=== PATIENT | female | born 1985 | race Caucasian/White ===

== ENCOUNTER 2016-06-08 13:49 | Emergency (ER) | payer SELFPAY ==
[~2016-06-08] VITALS: Ht 172.7 cm; Wt 77.1 kg
[2016-06-08] MEDS ORDERED: IV NORMAL SALINE 1000ML BAG 1,000 ML IV SCH (14:10)
[2016-06-08] MEDS ORDERED: 0.9 % SODIUM CHLORIDE 10 ML DISP.SYRIN. IV PRN (14:15)
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
[2016-06-08 14:30] LABS: BILIRUBIN,URINE NEGATIVE (NEG); GLUCOSE,URINE NEGATIVE (NEG); NITRITE,URINE NEGATIVE (NEG); PROTEIN,URINE NEGATIVE (NEG-TRACE); UROBILINOGEN,URINE 0.2 mg/dL (0.2 mg/dL)
[2016-06-08] MEDS ORDERED: ONDANSETRON PF 4 MG/2 ML VIAL. IV ONE (14:30)
[2016-06-08] MEDS ORDERED: ACETAMINOPHEN 325 MG TABLET. PO ONE (14:30)
[2016-06-08 14:35] LABS: BASO % 0 % (0-3); EOS % 1 % (0-3); HEMATOCRIT 41.6 % (36.0-47.0); LYMPH # 2.7 x10^3/uL (1.0-4.8); LYMPH % 34 % (24-48); MEAN CORPUSCULAR HEMOGLOBIN 30 pg (25-35); MEAN CORPUSCULAR HGB CONC 34 g/dL (31-37); MEAN CORPUSCULAR VOLUME 88 fL (79-100); MONO % 8 % (0-9); NEUT % 57 % (31-73); PLATELET COUNT 292 x10^3/uL (140-400); RED BLOOD COUNT 4.71 x10^6/uL (3.50-5.40); RED CELL DISTRIBUTION WIDTH 14.1 % (11.5-14.5); WHITE BLOOD COUNT 7.8 x10^3/uL (4.0-11.0)
[2016-06-08 14:37] LABS: BACTERIA,URINE MODERATE /HPF (0-FEW); RBC,URINE 0 /HPF (0-2); SQUAMOUS EPITHELIAL CELL,UR MANY /LPF; WBC,URINE OCC /HPF (0-4)
[2016-06-08 14:50] LABS: CALCIUM 9.2 mg/dL (8.5-10.1); CREATININE 0.7 mg/dL (0.6-1.0); GFR 99.6; POTASSIUM 3.4 mmol/L (3.5-5.1)
[2016-06-08 14:56] LABS: ALBUMIN 3.9 g/dL (3.4-5.0); ALBUMIN/GLOBULIN RATIO 0.9 (1.0-1.7); TOTAL BILIRUBIN 0.4 mg/dL (0.2-1.0); TOTAL PROTEIN 8.4 g/dL (6.4-8.2)
[2016-06-08] MEDS ORDERED: ONDA4TAB10 SL (15:35)
--- NOTE | 2016-06-08 16:00 | RAD ---
Obstetrical ultrasound, 06/08/2016: History: , abdominal pain Transabdominal and transvaginal scans were obtained. The uterus measures 8 x 5 x 6 cm. The myometrial echo pattern is somewhat heterogeneous. There is mild heterogeneous thickening of the central uterine echo complex which measures 11 mm in AP dimension. No intrauterine gestational sac is seen. The ovaries are of normal size. They contain small follicular cysts. Blood flow is present in both ovaries. No adnexal mass is seen. There is no evidence of free fluid in the pelvis. IMPRESSION: 1. Minimal thickening of the central uterine echo complex without evidence of an intrauterine gestational sac. 2. No adnexal abnormality is detected. 3. Given the patient's positive test the findings may reflect a very early intrauterine or an occult ectopic . Correlation with serial hCG titers and possibly sonographic follow-up is suggested.
[2016-06-08 16:09] VITALS: BP 111/62
== END 2016-06-08 16:36 | disposition home or self-care (01) ==
LOC: ER 13:49
DX: O20.0 Threatened abortion (principal); Z3A.01 Less than 8 weeks gestation of pregnancy; F31.9 Bipolar disorder, unspecified; F41.9 Anxiety disorder, unspecified; M30.3 Mucocutaneous lymph node syndrome [Kawasaki]; F15.10 Other stimulant abuse, uncomplicated; F17.210 Nicotine dependence, cigarettes, uncomplicated; Z88.1 Allergy status to other antibiotic agents; Z88.5 Allergy status to narcotic agent
CPT/HCPCS: 36415; 76801; 80053; 81001; 81025; 84702; 85027; 86900; 86901; 87086; 87491; 87591; 96361; 96374; 99285; J2405; J7030; Q0111

== ENCOUNTER 2016-11-07 16:26 | Inpatient (IN) | payer OTHER ==
[~2016-11-07] VITALS: Ht 172.7 cm; Wt 104.4 kg
[~2016-11-07 16:26] MED LIST: ONDA4TAB10 SL
[2016-11-07] MEDS ORDERED: fentaNYL PF VIAL 100 MCG/2 ML VIAL IV ONE (16:45)
[2016-11-07] MEDS ORDERED: ONDANSETRON PF 4 MG/2 ML VIAL. IV ONE (16:45)
[2016-11-07] MEDS ORDERED: diphenhydrAMINE 50 MG/ML VIAL IVP ONE (16:45)
[2016-11-07 17:23] LABS: OBC FLU VALID
[2016-11-07 17:33] LABS: BASO # 0.1 x10^3/uL (0.0-0.2); BASO % 0 % (0-3); EOS % 0 % (0-3); HEMATOCRIT 36.2 % (36.0-47.0); HEMOGLOBIN 12.5 g/dL (12.0-15.5); LYMPH # 2.8 x10^3/uL (1.0-4.8); LYMPH % 16 % (24-48); MEAN CORPUSCULAR HEMOGLOBIN 31 pg (25-35); MEAN CORPUSCULAR HGB CONC 35 g/dL (31-37); MEAN CORPUSCULAR VOLUME 90 fL (79-100); MONO % 7 % (0-9); NEUT % 77 % (31-73); PLATELET COUNT 300 x10^3/uL (140-400); RED BLOOD COUNT 4.03 x10^6/uL (3.50-5.40); RED CELL DISTRIBUTION WIDTH 13.4 % (11.5-14.5); WHITE BLOOD COUNT 17.9 x10^3/uL (4.0-11.0)
[2016-11-07] MEDS ORDERED: IV NORMAL SALINE 1000ML BAG 1,000 ML IV ONE (17:45)
[2016-11-07 17:49] LABS: CALCIUM 8.9 mg/dL (8.5-10.1); CREATININE 0.6 mg/dL (0.6-1.0); POTASSIUM 3.5 mmol/L (3.5-5.1)
[2016-11-07 17:55] LABS: ALBUMIN 2.8 g/dL (3.4-5.0); ALBUMIN/GLOBULIN RATIO 0.6 (1.0-1.7); C-REACTIVE PROTEIN 6.1 mg/L (0-3.3); TOTAL BILIRUBIN 0.2 mg/dL (0.2-1.0); TOTAL PROTEIN 7.4 g/dL (6.4-8.2)
[2016-11-07] MEDS ORDERED: PROCHLORPERAZINE 10 MG/2 ML VIAL. IV ONE (18:00)
[2016-11-07] MEDS ORDERED: METOCLOPRAMIDE HCL 10 MG/2 ML VIAL. IV ONE (18:00)
[2016-11-07] MEDS ORDERED: LIDOCAINE 2% 20 ML VIAL. ONE (18:51)
[2016-11-07] MEDS ORDERED: LIDOCAINE 2% 20 ML VIAL. SQ ONE (19:15)
[2016-11-07 19:24] LABS: CSF PROTEIN 87.8 mg/dL (15.0-45.0)
[2016-11-07 19:43] LABS: CSF CLARITY CLEAR; CSF COLOR COLORLESS
[2016-11-07] MEDS ORDERED: LIDOCAINE 2% JELLY 6ML IN APPLICATOR. MM ONE (20:00)
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
[2016-11-07 20:10] LABS: CSF PMN % 3 %
[2016-11-07] MEDS ORDERED: VANCOMYCIN 1.5 GM in IV NORMAL SALINE 500ML BAG 500 ML IV ONE (20:15)
[2016-11-07] MEDS ORDERED: DEXAMETHASONE SOD PHOS 20 MG/5 ML VIAL. IV ONE (20:15)
[2016-11-07] MEDS ORDERED: ONDANSETRON PF 4 MG/2 ML VIAL. IV PRN (20:30)
[2016-11-07] MEDS ORDERED: VANCOMYCIN 2 GM in IV NORMAL SALINE 500ML BAG 500 ML IV ONE (20:30)
[2016-11-07 20:40] LABS: NEGATIVE OBC MONO NEG; POSITIVE OBC MONO POS
[2016-11-07 20:43] LABS: % EOS 2 % (0-5); PLT ESTIMATE ADEQUATE (ADEQUATE)
[2016-11-07] MEDS: IV NORMAL SALINE 1000ML BAG 1,000 ML IV SCH (20:47)
[2016-11-07] MEDS: MORPHINE SULFATE 2 MG/ML DISP.SYRIN. IV PRN ×2 (20:54→23:34)
[2016-11-07] MEDS: DEXTROSE 5% IV SCH (21:26)
[2016-11-07] MEDS: ACYCLOVIR SODIUM IV SCH (21:26)
[2016-11-07] MEDS ORDERED: DEXTROSE 5% IV SCH (22:00)
[2016-11-07] MEDS ORDERED: ACYCLOVIR SODIUM IV SCH (22:00)
[2016-11-07 23:30] VITALS: BP 109/53
[2016-11-08] MEDS: MORPHINE SULFATE 2 MG/ML DISP.SYRIN. IV PRN ×7 (02:27→20:01)
[2016-11-08 03:17] VITALS: BP 87/46
[2016-11-08] MEDS: ACYCLOVIR SODIUM IV SCH (05:53)
[2016-11-08] MEDS: DEXTROSE 5% IV SCH (05:53)
[2016-11-08] MEDS: IV NORMAL SALINE 1000ML BAG 1,000 ML IV SCH ×2 (05:54→12:22)
[2016-11-08 06:03] LABS: BASO % 0 % (0-3); EOS % 0 % (0-3); HEMOGLOBIN 11.4 g/dL (12.0-15.5); LYMPH # 1.3 x10^3/uL (1.0-4.8); LYMPH % 8 % (24-48); MEAN CORPUSCULAR HEMOGLOBIN 31 pg (25-35); MEAN CORPUSCULAR HGB CONC 35 g/dL (31-37); MEAN CORPUSCULAR VOLUME 89 fL (79-100); MONO % 1 % (0-9); NEUT % 91 % (31-73); PLATELET COUNT 277 x10^3/uL (140-400); RED BLOOD COUNT 3.71 x10^6/uL (3.50-5.40); RED CELL DISTRIBUTION WIDTH 13.4 % (11.5-14.5); WHITE BLOOD COUNT 16.9 x10^3/uL (4.0-11.0)
[2016-11-08 06:26] LABS: CALCIUM 8.3 mg/dL (8.5-10.1); CREATININE 0.6 mg/dL (0.6-1.0); POTASSIUM 3.9 mmol/L (3.5-5.1)
[2016-11-08 07:02] VITALS: BP 91/47
--- NOTE | 2016-11-08 07:16 | EKG ---
[facility] [address] [place] [address] Test Date: 2016-11-07 Test Time: 16:38:46 Pat Name: KLAUDIA SAHU Department: Room: [facility] Gender: F [employer]: : 1985 Requested By: SKIP STEINBERG Order Number: [id number] Reading MD: Giovanni Abbasi Measurements Intervals Unity Rate: 127 P: 51 CO: 112 QRS: 77 QRSD: 82 T: 31 QT: 286 QTc: 421 Interpretive Statements SINUS TACHYCARDIA Electronically Signed On 11-30-2016 15:56:05 CDT by Giovanni Abbasi
[2016-11-08] MEDS ORDERED: PNEUMOC CONJ VACC 23-VALENT 0.5 ML VIAL. VAX IM ONE (09:00)
[2016-11-08] MEDS ORDERED: PNEUMOCOCCAL VAX SCREEN BY RX. MC ONE (09:00)
--- NOTE | 2016-11-08 09:02 | RAD ---
Portable chest, 11/07/2016: History: Chest pain, fever, cough The heart size and pulmonary vascularity are normal. No pulmonary infiltrates are seen. There is no evidence of pleural fluid. IMPRESSION: No acute cardiopulmonary abnormality is detected.
--- NOTE | 2016-11-08 09:27 | PDOC ---
Infectious Disease Note ROS ROS GEN: Denies fevers, chills, sweats HEENT: Denies blurred vision, sore throat CV: Denies chest pain RESP: Denies shortness of air, cough GI: Denies n/v/d NEURO: Denies confusion, dizziness MSK: Denies weakness, joint pain/swelling Vital Sign Vital Signs Vital Signs Date Time Temp Pulse Resp B/P (MAP) Pulse Ox O2 Delivery O2 Flow Rate FiO2 11/08/16 08:16 99 Room Air 11/08/16 07:02 97.6 107 20 91/47 (62) 97.6 Physical Exam PHYSICAL EXAM GENERAL: NAD, Alert HEENT: PERRL, OC/OP NECK: Supple, no JVD, no LN LUNGS: Clear HEART: S1S2, no gallop, no murmur ABD: Soft, NT, no organomegaly, no rebound EXT: No edema, no cyanosis [employer]TER: Alert, oriented x 3, no focal neurologic deficit SKIN: No rash IV: ok Labs Lab Laboratory Tests Test 11/07/16 16:45 11/07/16 17:25 11/07/16 18:57 11/08/16 05:40 Influenza Type A Antigen Negative (NEGATIVE) Influenza Type B Antigen Negative (NEGATIVE) White Blood Count 17.9 x10^3/uL (4.0-11.0) 16.9 x10^3/uL (4.0-11.0) Red Blood Count 4.03 x10^6/uL (3.50-5.40) 3.71 x10^6/uL (3.50-5.40) Hemoglobin 12.5 g/dL (12.0-15.5) 11.4 g/dL (12.0-15.5) Hematocrit 36.2 % (36.0-47.0) 33.0 % (36.0-47.0) Mean Corpuscular Volume 90 fL (79-100) 89 fL (79-100) Mean Corpuscular Hemoglobin 31 pg (25-35) 31 pg (25-35) Mean Corpuscular Hemoglobin Concent 35 g/dL (31-37) 35 g/dL (31-37) Red Cell Distribution Width 13.4 % (11.5-14.5) 13.4 % (11.5-14.5) Platelet Count 300 x10^3/uL (140-400) 277 x10^3/uL (140-400) Neutrophils (%) (Auto) 77 % (31-73) 91 % (31-73) Lymphocytes (%) (Auto) 16 % (24-48) 8 % (24-48) Monocytes (%) (Auto) 7 % (0-9) 1 % (0-9) Eosinophils (%) (Auto) 0 % (0-3) 0 % (0-3) Basophils (%) (Auto) 0 % (0-3) 0 % (0-3) Neutrophils # (Auto) 13.8 x10^3uL (1.8-7.7) 15.3 x10^3uL (1.8-7.7) Lymphocytes # (Auto) 2.8 x10^3/uL (1.0-4.8) 1.3 x10^3/uL (1.0-4.8) Monocytes # (Auto) 1.2 x10^3/uL (0.0-1.1) 0.2 x10^3/uL (0.0-1.1) Eosinophils # (Auto) 0.1 x10^3/uL (0.0-0.7) 0.0 x10^3/uL (0.0-0.7) Basophils # (Auto) 0.1 x10^3/uL (0.0-0.2) 0.0 x10^3/uL (0.0-0.2) Segmented Neutrophils % 71 % (35-66) Band Neutrophils % 3 % (0-9) Lymphocytes % 18 % (24-48) Monocytes % 6 % (0-10) Eosinophils % 2 % (0-5) Platelet Estimate Adequate (ADEQUATE) Sodium Level 135 mmol/L (136-145) 135 mmol/L (136-145) Potassium Level 3.5 mmol/L (3.5-5.1) 3.9 mmol/L (3.5-5.1) Chloride Level 101 mmol/L (98-107) 104 mmol/L (98-107) Carbon Dioxide Level 23 mmol/L (21-32) 18 mmol/L (21-32) Anion Gap 11 (6-14) 13 (6-14) Blood Urea Nitrogen 6 mg/dL (7-20) 6 mg/dL (7-20) Creatinine 0.6 mg/dL (0.6-1.0) 0.6 mg/dL (0.6-1.0) Estimated GFR (Cockcroft-Gault) 119.0 119.0 BUN/Creatinine Ratio 10 (6-20) Glucose Level 91 mg/dL (70-99) 147 mg/dL (70-99) Calcium Level 8.9 mg/dL (8.5-10.1) 8.3 mg/dL (8.5-10.1) Total Bilirubin 0.2 mg/dL (0.2-1.0) Aspartate Amino Transf (AST/SGOT) 11 U/L (15-37) Alanine Aminotransferase (ALT/SGPT) 18 U/L (14-59) Alkaline Phosphatase 63 U/L (46-116) C-Reactive Protein, Quantitative 6.1 mg/L (0-3.3) Total Protein 7.4 g/dL (6.4-8.2) Albumin 2.8 g/dL (3.4-5.0) Albumin/Globulin Ratio 0.6 (1.0-1.7) Heterophil Agglutinins Negative (NEGATIVE) CSF Tube Number 4 CSF Color Colorless CSF Clarity Clear CSF WBC 110 CSF RBC 0 CSF Mononuclear WBCs % 97 % CSF Polynuclear WBCs (%) 3 % CSF Glucose 51 mg/dL (37-70) CSF Total Protein 87.8 mg/dL (15.0-45.0) Objective Assessment Aseptic meningitis leukocytosis - reactive plus steroid 24 weeks Emycin allergy - ? reaction but has tolerated Azithromycin Plan Plan of Care D/c Acyclovir Cont Rocephin for now F/u labs and cults Hope for d/c home in Thank you # [phone] ROSALEE BRADEN MD Nov 08, 2016 09:27
--- NOTE | 2016-11-08 11:14 | CONS ---
DATE OF CONSULTATION: 11/08/2016 ROOM: 656. REQUESTING PHYSICIAN: Dr. Matos. REASON FOR CONSULTATION: Meningitis and . HISTORY OF PRESENT ILLNESS: The patient is a pleasant 30-year-old female, with her fifth child and is 24 weeks' . She states on Monday, she was in her normal state of health, but over the course of the day, developed a headache. This again became worse yesterday. She did not have any change in vision. Denies any bug bites or tick bites. Denies any ill contacts. Her youngest child is 10 months old. She had low grade sweats and a little sinus congestion has developed overnight with a little cough that was nonproductive. No nausea, vomiting, diarrhea, dysuria, frequency, urgency. Denies any unusual or abnormal vaginal discharge, no ulcerations or pain in the area. She presented to [facility] after talking to the BUSINESS OFFICE COORDINATOR. Her white blood cell count was 17.9. She was afebrile. She subsequently has undergone a lumbar puncture. She was found to have 110 white cells with 97% WBCs, total protein was 87.8, glucose was 51. She was admitted to the hospital. She was given a dose of dexamethasone and Rocephin, a dose of vancomycin and placed on IV acyclovir. Currently, the patient is feeling much better. She is actually asking if she can go home. She denies any fevers or chills, sweats, headache has improved. She has no change in vision. No problem swallowing or hearing problems. Again, she is a little congested this morning. No gross sore throat or dry cough. No nausea, vomiting, or diarrhea. No dysuria, frequency, or urgency. No rashes, no joint aches, no muscle aches. PAST MEDICAL HISTORY: Positive for anxiety, bipolar disorder, depression, history of PID, history of Kawasaki disease. Also states she has a history of Trichomonas in the distant past. REVIEW OF SYSTEMS: Otherwise negative except for mentioned above. ALLERGIES: Listed as ERYTHROMYCIN, she is uncertain what happens when she takes this, though she has taken azithromycin without complications. SOCIAL HISTORY: She has a history of smoking. Does have a history of drug use in the past. FAMILY HISTORY: Noncontributory. CURRENT MEDICATIONS: Again, she received a dose of dexamethasone. She received a dose of vancomycin. She was placed on IV acyclovir and placed on Rocephin q. 12, Benadryl, Reglan. Other meds are available, have been reviewed in the chart. PHYSICAL EXAMINATION: VITAL SIGNS: She has been afebrile, temperature is 97.6, pulse 107, respirations 20, blood pressure 91/47, satting 99% on room air. CONSTITUTIONAL: She is cooperative. She is in no acute distress. She looks well, but she does sound just a trace congested. HEENT: Pupils are equal and reactive. She has normal conjunctivae. Extraocular muscles were intact. She had no pain with eye movement. Oral cavity: Pharynx was clear. NECK: Supple with full range of motion, no complications. LUNGS: Clear to auscultation bilaterally. HEART: S1, S2. ABDOMEN: Appropriately distended with positive bowel sounds, no guarding or rebound. EXTREMITIES: No clubbing or cyanosis. No gross edema. SKIN: Without signs of rash. Joints are not inflamed. NEUROLOGIC: She is nonfocal and appropriate. PSYCHIATRIC: Affect is appropriate. LABORATORY DATA: White count today 69, hemoglobin 11.4, platelets of 277 with 91% neutrophils, glucose of 147 this morning. AST was 11, ALT was 18, alkaline phosphatase 63. CRP 6.1. CSF described in the history of present illness. Influenza screen was negative. [place] screen was negative. Chest x-ray has not been officially interpreted, but there was no acute pulmonary disease in ED report IMPRESSION: 1. Aseptic meningitis. She is not starting any new medications recently in addition to denied any bug bites, tick bites or ill contacts. 2. Leukocytosis, reactive, plus steroids. 3. 24 weeks' . 4. ERYTHROMYCIN allergy, questionable reaction as she has tolerated azithromycin in the past. RECOMMENDATIONS: Discontinue the acyclovir. We will continue the Rocephin for now. Follow up on labs and cultures. Hope that she will be able to be discharged to home in the morning. Thank you for allowing me to participate in the patient's care. If you have any questions, please do not hesitate to contact me. ROSALEE BRADEN MD DR: BRYANT/laura JOB#: [id number] / [id number]
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
[2016-11-08 11:31] VITALS: BP 106/67
[2016-11-08] MEDS ORDERED: CALCIUM CARBONATE 500 MG TAB.CHEW PO PRN (13:30)
[2016-11-08 15:18] VITALS: BP 104/64
[2016-11-08 19:51] VITALS: BP 132/81
[2016-11-08 23:20] VITALS: BP 102/58
[2016-11-09 03:35] VITALS: BP 97/60
[2016-11-09] MEDS ORDERED: ACETAMINOPHEN 325 MG TABLET. PO PRN (04:15)
[2016-11-09] MEDS: MORPHINE SULFATE 4 MG/ML DISP.SYRIN. IV PRN ×2 (04:26→07:17)
[2016-11-09 04:34] LABS: BASO % 0 % (0-3); EOS % 1 % (0-3); HEMATOCRIT 30.8 % (36.0-47.0); HEMOGLOBIN 10.5 g/dL (12.0-15.5); LYMPH # 2.9 x10^3/uL (1.0-4.8); LYMPH % 26 % (24-48); MEAN CORPUSCULAR HEMOGLOBIN 31 pg (25-35); MEAN CORPUSCULAR HGB CONC 34 g/dL (31-37); MEAN CORPUSCULAR VOLUME 90 fL (79-100); MONO % 9 % (0-9); NEUT % 64 % (31-73); PLATELET COUNT 235 x10^3/uL (140-400); RED BLOOD COUNT 3.43 x10^6/uL (3.50-5.40); RED CELL DISTRIBUTION WIDTH 13.4 % (11.5-14.5)
[2016-11-09 05:01] LABS: CALCIUM 8.1 mg/dL (8.5-10.1); CREATININE 0.5 mg/dL (0.6-1.0); GFR 146.9; POTASSIUM 3.5 mmol/L (3.5-5.1)
[2016-11-09 07:21] VITALS: BP 108/72
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
--- NOTE | 2016-11-09 11:07 | PDOC ---
PROGRESS NOTES Chief Complaint Chief Complaint Headache meningitis PMH: anxiety bipolar depression PID Kawasaki's disease History of Present Illness History of Present Illness Pt was sitting at the side of the bed. RN was in the room. No new complaints and NAD. She states that she needed to go home and was subsequently discharged. ID - D/C acyclovir and cont. Rocephin -D/C home today Vitals Vitals Vital Signs Date Time Temp Pulse Resp B/P (MAP) Pulse Ox O2 Delivery O2 Flow Rate FiO2 11/09/16 07:21 97.6 97 20 108/72 (84) 100 Room Air 97.6 Physical Exam General: Alert, Oriented X3, Cooperative, No acute distress Heart: Regular rate, Normal S1, Normal S2 Lungs: Clear Abdomen: Normal bowel sounds, No tenderness Extremities: No clubbing, No cyanosis Skin: No rashes, No breakdown Labs LABS Laboratory Tests Test 11/09/16 03:20 White Blood Count 11.0 x10^3/uL (4.0-11.0) Red Blood Count 3.43 x10^6/uL (3.50-5.40) Hemoglobin 10.5 g/dL (12.0-15.5) Hematocrit 30.8 % (36.0-47.0) Mean Corpuscular Volume 90 fL (79-100) Mean Corpuscular Hemoglobin 31 pg (25-35) Mean Corpuscular Hemoglobin Concent 34 g/dL (31-37) Red Cell Distribution Width 13.4 % (11.5-14.5) Platelet Count 235 x10^3/uL (140-400) Neutrophils (%) (Auto) 64 % (31-73) Lymphocytes (%) (Auto) 26 % (24-48) Monocytes (%) (Auto) 9 % (0-9) Eosinophils (%) (Auto) 1 % (0-3) Basophils (%) (Auto) 0 % (0-3) Neutrophils # (Auto) 7.1 x10^3uL (1.8-7.7) Lymphocytes # (Auto) 2.9 x10^3/uL (1.0-4.8) Monocytes # (Auto) 0.9 x10^3/uL (0.0-1.1) Eosinophils # (Auto) 0.1 x10^3/uL (0.0-0.7) Basophils # (Auto) 0.0 x10^3/uL (0.0-0.2) Sodium Level 137 mmol/L (136-145) Potassium Level 3.5 mmol/L (3.5-5.1) Chloride Level 107 mmol/L (98-107) Carbon Dioxide Level 20 mmol/L (21-32) Anion Gap 10 (6-14) Blood Urea Nitrogen 7 mg/dL (7-20) Creatinine 0.5 mg/dL (0.6-1.0) Estimated GFR (Cockcroft-Gault) 146.9 Glucose Level 101 mg/dL (70-99) Calcium Level 8.1 mg/dL (8.5-10.1) Review of Systems Review of Systems Pt fatigued Pt complains of hunger Pt complains of mild headache Assessment and Plan Assessmemt and Plan Problems Medical Problems: (1) Chest pain Status: Acute (2) Headache Status: Acute (3) Myalgia Status: Acute Headache meningitis PMH: anxiety bipolar depression PID Kawasaki's disease Plan: Home meds Appreciate subspecialist input D/C today Follow-up if symptoms persist Notify specialist of D/C Problems: Comment Review of Relevant I have reviewed the following items randolph (where applicable) has been applied. Labs Laboratory Tests Test 11/07/16 16:45 11/07/16 17:25 11/07/16 18:57 11/08/16 05:40 Influenza Type A Antigen Negative (NEGATIVE) Influenza Type B Antigen Negative (NEGATIVE) White Blood Count 17.9 x10^3/uL (4.0-11.0) 16.9 x10^3/uL (4.0-11.0) Red Blood Count 4.03 x10^6/uL (3.50-5.40) 3.71 x10^6/uL (3.50-5.40) Hemoglobin 12.5 g/dL (12.0-15.5) 11.4 g/dL (12.0-15.5) Hematocrit 36.2 % (36.0-47.0) 33.0 % (36.0-47.0) Mean Corpuscular Volume 90 fL (79-100) 89 fL (79-100) Mean Corpuscular Hemoglobin 31 pg (25-35) 31 pg (25-35) Mean Corpuscular Hemoglobin Concent 35 g/dL (31-37) 35 g/dL (31-37) Red Cell Distribution Width 13.4 % (11.5-14.5) 13.4 % (11.5-14.5) Platelet Count 300 x10^3/uL (140-400) 277 x10^3/uL (140-400) Neutrophils (%) (Auto) 77 % (31-73) 91 % (31-73) Lymphocytes (%) (Auto) 16 % (24-48) 8 % (24-48) Monocytes (%) (Auto) 7 % (0-9) 1 % (0-9) Eosinophils (%) (Auto) 0 % (0-3) 0 % (0-3) Basophils (%) (Auto) 0 % (0-3) 0 % (0-3) Neutrophils # (Auto) 13.8 x10^3uL (1.8-7.7) 15.3 x10^3uL (1.8-7.7) Lymphocytes # (Auto) 2.8 x10^3/uL (1.0-4.8) 1.3 x10^3/uL (1.0-4.8) Monocytes # (Auto) 1.2 x10^3/uL (0.0-1.1) 0.2 x10^3/uL (0.0-1.1) Eosinophils # (Auto) 0.1 x10^3/uL (0.0-0.7) 0.0 x10^3/uL (0.0-0.7) Basophils # (Auto) 0.1 x10^3/uL (0.0-0.2) 0.0 x10^3/uL (0.0-0.2) Segmented Neutrophils % 71 % (35-66) Band Neutrophils % 3 % (0-9) Lymphocytes % 18 % (24-48) Monocytes % 6 % (0-10) Eosinophils % 2 % (0-5) Platelet Estimate Adequate (ADEQUATE) Sodium Level 135 mmol/L (136-145) 135 mmol/L (136-145) Potassium Level 3.5 mmol/L (3.5-5.1) 3.9 mmol/L (3.5-5.1) Chloride Level 101 mmol/L (98-107) 104 mmol/L (98-107) Carbon Dioxide Level 23 mmol/L (21-32) 18 mmol/L (21-32) Anion Gap 11 (6-14) 13 (6-14) Blood Urea Nitrogen 6 mg/dL (7-20) 6 mg/dL (7-20) Creatinine 0.6 mg/dL (0.6-1.0) 0.6 mg/dL (0.6-1.0) Estimated GFR (Cockcroft-Gault) 119.0 119.0 BUN/Creatinine Ratio 10 (6-20) Glucose Level 91 mg/dL (70-99) 147 mg/dL (70-99) Calcium Level 8.9 mg/dL (8.5-10.1) 8.3 mg/dL (8.5-10.1) Total Bilirubin 0.2 mg/dL (0.2-1.0) Aspartate Amino Transf (AST/SGOT) 11 U/L (15-37) Alanine Aminotransferase (ALT/SGPT) 18 U/L (14-59) Alkaline Phosphatase 63 U/L (46-116) C-Reactive Protein, Quantitative 6.1 mg/L (0-3.3) Total Protein 7.4 g/dL (6.4-8.2) Albumin 2.8 g/dL (3.4-5.0) Albumin/Globulin Ratio 0.6 (1.0-1.7) Heterophil Agglutinins Negative (NEGATIVE) CSF Tube Number 4 CSF Color Colorless CSF Clarity Clear CSF WBC 110 CSF RBC 0 CSF Mononuclear WBCs % 97 % CSF Polynuclear WBCs (%) 3 % CSF Glucose 51 mg/dL (37-70) CSF Total Protein 87.8 mg/dL (15.0-45.0) Test 11/09/16 03:20 White Blood Count 11.0 x10^3/uL (4.0-11.0) Red Blood Count 3.43 x10^6/uL (3.50-5.40) Hemoglobin 10.5 g/dL (12.0-15.5) Hematocrit 30.8 % (36.0-47.0) Mean Corpuscular Volume 90 fL (79-100) Mean Corpuscular Hemoglobin 31 pg (25-35) Mean Corpuscular Hemoglobin Concent 34 g/dL (31-37) Red Cell Distribution Width 13.4 % (11.5-14.5) Platelet Count 235 x10^3/uL (140-400) Neutrophils (%) (Auto) 64 % (31-73) Lymphocytes (%) (Auto) 26 % (24-48) Monocytes (%) (Auto) 9 % (0-9) Eosinophils (%) (Auto) 1 % (0-3) Basophils (%) (Auto) 0 % (0-3) Neutrophils # (Auto) 7.1 x10^3uL (1.8-7.7) Lymphocytes # (Auto) 2.9 x10^3/uL (1.0-4.8) Monocytes # (Auto) 0.9 x10^3/uL (0.0-1.1) Eosinophils # (Auto) 0.1 x10^3/uL (0.0-0.7) Basophils # (Auto) 0.0 x10^3/uL (0.0-0.2) Sodium Level 137 mmol/L (136-145) Potassium Level 3.5 mmol/L (3.5-5.1) Chloride Level 107 mmol/L (98-107) Carbon Dioxide Level 20 mmol/L (21-32) Anion Gap 10 (6-14) Blood Urea Nitrogen 7 mg/dL (7-20) Creatinine 0.5 mg/dL (0.6-1.0) Estimated GFR (Cockcroft-Gault) 146.9 Glucose Level 101 mg/dL (70-99) Calcium Level 8.1 mg/dL (8.5-10.1) Laboratory Tests Test 11/09/16 03:20 White Blood Count 11.0 x10^3/uL (4.0-11.0) Red Blood Count 3.43 x10^6/uL (3.50-5.40) Hemoglobin 10.5 g/dL (12.0-15.5) Hematocrit 30.8 % (36.0-47.0) Mean Corpuscular Volume 90 fL (79-100) Mean Corpuscular Hemoglobin 31 pg (25-35) Mean Corpuscular Hemoglobin Concent 34 g/dL (31-37) Red Cell Distribution Width 13.4 % (11.5-14.5) Platelet Count 235 x10^3/uL (140-400) Neutrophils (%) (Auto) 64 % (31-73) Lymphocytes (%) (Auto) 26 % (24-48) Monocytes (%) (Auto) 9 % (0-9) Eosinophils (%) (Auto) 1 % (0-3) Basophils (%) (Auto) 0 % (0-3) Neutrophils # (Auto) 7.1 x10^3uL (1.8-7.7) Lymphocytes # (Auto) 2.9 x10^3/uL (1.0-4.8) Monocytes # (Auto) 0.9 x10^3/uL (0.0-1.1) Eosinophils # (Auto) 0.1 x10^3/uL (0.0-0.7) Basophils # (Auto) 0.0 x10^3/uL (0.0-0.2) Sodium Level 137 mmol/L (136-145) Potassium Level 3.5 mmol/L (3.5-5.1) Chloride Level 107 mmol/L (98-107) Carbon Dioxide Level 20 mmol/L (21-32) Anion Gap 10 (6-14) Blood Urea Nitrogen 7 mg/dL (7-20) Creatinine 0.5 mg/dL (0.6-1.0) Estimated GFR (Cockcroft-Gault) 146.9 Glucose Level 101 mg/dL (70-99) Calcium Level 8.1 mg/dL (8.5-10.1) Microbiology 11/07/16 Anaerobic/Aerobic Culture, Resulted Pending 11/07/16 Anaerobic Culture Result 1 (JONATHAN), Resulted Pending 11/07/16 Aerobic Culture - Preliminary, Resulted 11/07/16 Aerobic Culture Result 1 (JONATHAN) - Preliminary, Resulted Medications Current Medications Fentanyl Citrate (Fentanyl 2ml Vial) 50 mcg 1X ONCE IV Last administered on 17:39; Start 11/07/16 at 16:45; Stop 11/07/16 at 16:46; Status DC Ondansetron HCl (Zofran) 4 mg 1X ONCE IV Last administered on 11/07/16 17:36 ; Start 11/07/16 at 16:45; Stop 11/07/16 at 16:46; Status DC Diphenhydramine HCl (Benadryl) 25 mg 1X ONCE IVP Last administered on 17:38; Start 11/07/16 at 16:45; Stop 11/07/16 at 16:46; Status DC Sodium Chloride 1,000 ml @ 1,000 mls/hr 1X ONCE IV Last administered on 17:43; Start 11/07/16 at 17:45; Stop 11/07/16 at 18:44; Status DC Metoclopramide HCl (Reglan) 10 mg 1X ONCE IV Last administered on 11/07/16 18 :47; Start 11/07/16 at 18:00; Stop 11/07/16 at 18:04; Status DC Prochlorperazine Edisylate (Compazine) 10 mg 1X ONCE IV Last administered on 11/07/16 18:48; Start 11/07/16 at 18:00; Stop 11/07/16 at 18:04; Status DC Lidocaine HCl 20 ml STK-MED ONCE .ROUTE ; Start 11/07/16 at 18:51; Stop at 18:52; Status DC Lidocaine HCl 20 ml 1X ONCE SQ Last administered on 11/07/16 19:17; Start at 19:15; Stop 11/07/16 at 19:16; Status DC Lidocaine HCl (Glydo (Lidocaine) Jelly) 1 ana maria 1X ONCE MM ; Start 11/07/16 at 20 :00; Stop 11/07/16 at 20:01; Status DC Ceftriaxone Sodium 2 gm/ Sodium Chloride 100 ml @ 200 mls/hr Q12HR IV Last administered on 11/08/16 20:04; Start 11/07/16 at 20:27; Stop 11/09/16 at 08:14 ; Status DC Vancomycin HCl 1.5 gm/Sodium Chloride 500 ml @ 250 mls/hr 1X ONCE IV ; Start 11/07/16 at 20:15; Stop 11/07/16 at 22:14; Status UNV Acyclovir Sodium 640 mg/Dextrose 112.8 ml @ 112.8 mls/ hr Q8HRS IV Last administered on 11/08/16 05:53; Start 11/07/16 at 20:39; Stop 11/08/16 at 09:19 ; Status DC Dexamethasone Sodium Phosphate (Decadron) 10 mg 1X ONCE IV Last administered on 11/07/16 20:46; Start 11/07/16 at 20:15; Stop 11/07/16 at 20:26; Status DC Ondansetron HCl (Zofran) 4 mg PRN Q8HRS PRN IV NAUSEA/VOMITING; Start 11/07/16 at 20:30; Stop 11/08/16 at 20:29; Status DC Morphine Sulfate 2 mg PRN Q2HR PRN IV PAIN Last administered on 11/08/16 20:01 ; Start 11/07/16 at 20:30; Stop 11/08/16 at 20:29; Status DC Sodium Chloride 1,000 ml @ 125 mls/hr Q8H IV Last administered on 11/08/16 05 :54; Start 11/07/16 at 20:22; Stop 11/08/16 at 20:21; Status DC Acyclovir Sodium 640 mg/Dextrose 62.8 ml @ 62.8 mls/hr Q8HRS IV ; Start at 22:00; Status UNV Vancomycin HCl 2 gm/Sodium Chloride 500 ml @ 250 mls/hr ONCE ONCE IV Last administered on 11/07/16 23:36; Start 11/07/16 at 20:30; Stop 11/07/16 at 22:29 ; Status DC Pneumococcal Polyvalent Vaccine (Do NOT chart on this placeholder) 0.5 each 1X ONCE MC ; Start 11/08/16 at 09:00; Stop 11/08/16 at 09:01; Status UNV Pneumococcal Polyvalent Vaccine (Pneumovax 23) 0.5 ml ONCE ONCE VAX IM ; Start 11/08/16 at 09:00; Stop 11/08/16 at 09:01; Status DC Calcium Carbonate/ Glycine (Tums) 500 mg PRN QID PRN PO INDIGESTION Last administered on 11/08/16 16:12; Start 11/08/16 at 13:30; Stop 11/09/16 at 10:20 ; Status DC Morphine Sulfate 2 mg PRN Q2HR PRN IV SEVERE PAIN Last administered on 07:17; Start 11/09/16 at 04:30; Stop 11/09/16 at 10:20; Status DC Acetaminophen (Tylenol) 650 mg PRN Q6HRS PRN PO MILD PAIN; Start 11/09/16 at 04 :15; Stop 11/09/16 at 10:20; Status DC Active Scripts Active Zofran Odt (Ondansetron) 4 Mg Tab.rapdis 1 Tab SL Q8HRS Vitals/I & O Vital Sign - Last 24 Hours 11/08/16 11/08/16 11/08/16 11/08/16 11:31 13:14 15:18 16:12 Temp 97.9 98.6 97.9 98.6 Pulse 99 105 Resp 20 20 B/P (MAP) 106/67 (80) 104/64 (77) Pulse Ox 99 99 99 99 O2 Delivery Room Air Room Air Room Air Room Air 11/08/16 11/08/16 11/08/16 11/08/16 18:15 19:51 20:00 20:01 Temp 97.9 97.9 Pulse 79 Resp 18 20 B/P (MAP) 132/81 (98) Pulse Ox 99 99 96 O2 Delivery Room Air Room Air Room Air Room Air 11/08/16 11/09/16 11/09/16 11/09/16 23:20 03:35 04:26 04:56 Temp 97.7 98.0 97.7 98.0 Pulse 99 94 Resp 16 16 20 20 B/P (MAP) 102/58 (73) 97/60 (72) Pulse Ox 98 97 96 96 O2 Delivery Room Air Room Air Room Air Room Air 11/09/16 07:21 Temp 97.6 97.6 Pulse 97 Resp 20 B/P (MAP) 108/72 (84) Pulse Ox 100 O2 Delivery Room Air JONATHON STUBBS III DO Nov 09, 2016 11:07
--- NOTE | 2016-11-24 12:27 | DS ---
DATE OF DISCHARGE: 11/09/2016 ADMISSION DIAGNOSES: Meningitis, second trimester . DISCHARGE DIAGNOSIS: Resolving meningitis. HOSPITAL COURSE: The patient is a pleasant 30-year-old female who presented with meningitis. Basically, we thought it was bacterial at first, we gave her some antibiotics. We did consult ID. They felt it was probably aseptic. She did well over next few days, we discharged home. DISPOSITION: Home. ACTIVITY: As tolerated. DIET: Low sodium. MEDICATIONS: Please see the MRAD. TOTAL TIME: 34 minutes. JONATHON STUBBS DO DR: VICKIE/laura JOB#: [id number] / [id number]
== END 2016-11-09 10:00 | disposition home or self-care (01) | DRG 781 ==
LOC: ER 16:26 → 6 SOUTH 22:20
PROVIDERS: ADMIT Internal Medicine; ATTEND Internal Medicine
PROC: 009U3ZX Drainage of Spinal Canal, Percutaneous Approach, Diagnostic (ICD-10-PCS; principal; 2016-11-07)
DX: O99.352 Diseases of the nervous system complicating pregnancy, second trimester (principal); G03.0 Nonpyogenic meningitis; M30.3 Mucocutaneous lymph node syndrome [Kawasaki]; O25.12 Malnutrition in pregnancy, second trimester; F31.9 Bipolar disorder, unspecified; F41.9 Anxiety disorder, unspecified; N73.9 Female pelvic inflammatory disease, unspecified; D72.829 Elevated white blood cell count, unspecified; F15.90 Other stimulant use, unspecified, uncomplicated; Z3A.24 24 weeks gestation of pregnancy; Z83.3 Family history of diabetes mellitus; Z87.891 Personal history of nicotine dependence; Z88.8 Allergy status to other drugs, medicaments and biological substances; Z68.35 Body mass index [BMI] 35.0-35.9, adult
CPT/HCPCS: 36415; 71010; 80048; 80053; 82945; 84157; 85007; 85025; 86140; 86308; 87071; 87075; 87205; 87804; 89051; 93005; 96361; 96374; 96375; J0133; J0696; J0780; J1100; J1200; J2270; J2405; J2765; J3010; J3370; J7030; J7040; 99285-25; J2001

== ENCOUNTER 2017-01-04 10:27 | Observation (INO) | payer OTHER ==
[2017-01-04 11:53] LABS: BARBITURATES NEG (NEG); BENZODIAZEPINES NEG (NEG); CANNABINOIDS NEG (NEG); COCAINE NEG (NEG); METHADONE NEG (NEG); OPIATES NEG (NEG); PHENCYCLIDINE NEG (NEG)
[2017-01-04 12:33] LABS: BILIRUBIN,URINE NEGATIVE (NEG); GLUCOSE,URINE NEGATIVE (NEG); NITRITE,URINE NEGATIVE (NEG); PROTEIN,URINE 30 mg/dL (NEG-TRACE); UROBILINOGEN,URINE 0.2 mg/dL (0.2 mg/dL)
[2017-01-04 12:40] LABS: SQUAMOUS EPITHELIAL CELL,UR MANY /LPF
[2017-01-04 12:41] LABS: BACTERIA,URINE MODERATE /HPF (0-FEW); RBC,URINE 0 /HPF (0-2)
== END 2017-01-04 13:45 | disposition home or self-care (01) ==
LOC: 3 SO LND 10:27
PROVIDERS: ADMIT Specialist; ATTEND Specialist
DX: O26.893 Other specified pregnancy related conditions, third trimester (principal); R10.9 Unspecified abdominal pain; Z3A.33 33 weeks gestation of pregnancy
CPT/HCPCS: 80307; 81001; 87086; G0378; G0379; G0479

== ENCOUNTER 2017-02-20 20:04 | Emergency (ER) | payer OTHER ==
[2017-02-20 20:32] LABS: URINE HCG POC HCG NEGATIVE (Negative)
[2017-02-20 20:37] LABS: BILIRUBIN,URINE NEGATIVE (NEG); CLARITY,URINE CLEAR; COLOR,URINE YELLOW; GLUCOSE,URINE NEGATIVE (NEG); NITRITE,URINE NEGATIVE (NEG); PH,URINE 5.5; PROTEIN,URINE NEGATIVE (NEG-TRACE); UROBILINOGEN,URINE 0.2 mg/dL (0.2 mg/dL)
[2017-02-20] MEDS: HYDROcodone/APAP 7.5/325MG 1 TAB TABLET PO (20:38)
[2017-02-20 20:56] LABS: BACTERIA,URINE MOD /HPF (0-FEW); RBC,URINE 0 /HPF (0-2); SQUAMOUS EPITHELIAL CELL,UR MANY /LPF
== END 2017-02-20 22:10 | disposition home or self-care (01) ==
LOC: ER 20:04
DX: M54.6 Pain in thoracic spine (principal); F43.10 Post-traumatic stress disorder, unspecified; F31.9 Bipolar disorder, unspecified; M30.3 Mucocutaneous lymph node syndrome [Kawasaki]; F15.10 Other stimulant abuse, uncomplicated; Z88.1 Allergy status to other antibiotic agents; W00.0XXA Fall on same level due to ice and snow, initial encounter; Y93.89 Activity, other specified; Y99.8 Other external cause status; Y92.89 Other specified places as the place of occurrence of the external cause
CPT/HCPCS: 71046; 72100; 81001; 81025; 99285-25

== ENCOUNTER 2017-03-21 12:06 | Day surgery (SDC) | payer OTHER ==
[2017-03-21] MEDS: IV RINGERS,LACTATED 1000ML 1,000 ML IV ×2 (07:00)
[~2017-03-21 12:06] MED LIST changes: +HYDROmorphone 2 MG/ML VIAL IV; +LIDOCAINE 1% PF 2 ML VIAL. ID; -ONDA4TAB10 SL; +ONDANSETRON PF 4 MG/2 ML VIAL. IV; +fentaNYL PF VIAL 100 MCG/2 ML VIAL IV
[2017-03-21] MEDS ORDERED: SEVOFLURANE 61 TO 120 MINUTES. IH ×2 (13:11)
[2017-03-21] MEDS ORDERED: ROCURONIUM 50 MG/5 ML VIAL. ×4 (13:12→13:18)
[2017-03-21] MEDS ORDERED: PROPOFOL 0 ML IV ×2 (13:12)
[2017-03-21] MEDS ORDERED: DEXAMETHASONE SOD PHOS 20 MG/5 ML VIAL. ×4 (13:12→13:18)
[2017-03-21] MEDS ORDERED: fentaNYL PF VIAL 100 MCG/2 ML VIAL ×6 (13:12→14:35)
[2017-03-21] MEDS ORDERED: GLYCOPYRROLATE 1 MG/5 ML VIAL. ×2 (13:12)
[2017-03-21] MEDS ORDERED: MIDAZOLAM HCL/PF 2 MG/2 ML VIAL. ×2 (13:12)
[2017-03-21] MEDS ORDERED: NEOSTIGMINE METHYLSULFATE 5 MG/5 ML SYRINGE. ×2 (13:12)
[2017-03-21] MEDS ORDERED: SUCCINYLCHOLINE 200 MG/10 ML VIAL. ×2 (13:12)
[2017-03-21] MEDS ORDERED: LIDOCAINE 2% PF Vial for OR 5 ML VIAL. ×4 (13:12→13:18)
[2017-03-21] MEDS ORDERED: KETOROLAC 30 MG/ML INJ FOR OR. INJ ×2 (13:13)
[2017-03-21] MEDS ORDERED: ONDANSETRON PF 4 MG/2 ML VIAL. ×4 (13:13→13:18)
[2017-03-21] MEDS ORDERED: PROPOFOL 20 ML IV ×2 (13:18)
[2017-03-21 13:58] LABS: NEG OBC UR NEG; POS OBC UR POS
[2017-03-21 14:01] LABS: U PREG PATIENT NEGATIVE (NEG)
[2017-03-21] MEDS: BUPIVAC MPF-EPI 0.5%-1:200000 30 ML VIAL. INJ ×2 (14:20)
[2017-03-21] MEDS ORDERED: SEVOFLURANE 31 TO 60 MINUTES. IH ×2 (14:46)
[2017-03-21] MEDS: fentaNYL PF VIAL 100 MCG/2 ML VIAL IV ×4 (14:59→15:13)
[2017-03-21] MEDS: PROCHLORPERAZINE 10 MG/2 ML VIAL. IV ×2 (15:00)
[2017-03-21] MEDS: MORPHINE SULFATE 2 MG/ML DISP.SYRIN. IV ×4 (15:06→15:25)
[2017-03-21] MEDS: oxyCODONE/APAP 5/325 1 TAB TABLET PO ×2 (15:41)
== END 2017-03-21 16:15 | disposition home or self-care (01) ==
LOC: SURG 12:06
DX: Z30.2 Encounter for sterilization (principal); K21.9 Gastro-esophageal reflux disease without esophagitis; E66.9 Obesity, unspecified; F41.9 Anxiety disorder, unspecified; F32.9 Major depressive disorder, single episode, unspecified; Z72.0 Tobacco use; Z88.1 Allergy status to other antibiotic agents
CPT/HCPCS: 58671; 81025; C1769; J0330; J0780; J1100; J1885; J2250; J2270; J2405; J2704; J2710; J3010; J3490; J7120

== ENCOUNTER 2017-06-17 13:42 | Emergency (ER) | payer OTHER | END 2017-06-17 15:45 | disposition home or self-care (01) | LOC: ER 15:45 | DX: S02.2XXA Fracture of nasal bones, initial encounter for closed fracture (principal); S00.83XA Contusion of other part of head, initial encounter; M30.3 Mucocutaneous lymph node syndrome [Kawasaki]; F43.10 Post-traumatic stress disorder, unspecified; F31.9 Bipolar disorder, unspecified; F15.10 Other stimulant abuse, uncomplicated; Z88.1 Allergy status to other antibiotic agents; Y08.89XA Assault by other specified means, initial encounter; Y93.89 Activity, other specified; Y99.8 Other external cause status; Y92.89 Other specified places as the place of occurrence of the external cause | CPT/HCPCS: 70486; 99284-25 ==

== ENCOUNTER 2018-05-19 18:10 | Emergency (ER) | payer MEDICAID, OTHER ==
[~2018-05-19] VITALS: Ht 172.7 cm; Wt 93.0 kg
[~2018-05-19 18:10] MED LIST changes: +AMOX1TAB61 PO; +HYDR-3164 PO; -HYDROmorphone 2 MG/ML VIAL IV; -LIDOCAINE 1% PF 2 ML VIAL. ID; +NAPR-514 PO; +ONDA4TAB10 SL; -ONDANSETRON PF 4 MG/2 ML VIAL. IV; -fentaNYL PF VIAL 100 MCG/2 ML VIAL IV
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
[2018-05-19] MEDS ORDERED: diphenhydrAMINE 50 MG/ML VIAL IVP ONE ×2 (18:45→20:45)
[2018-05-19] MEDS ORDERED: methylPREDNISolone SOD SUCC PF 125 MG/2 ML VIAL. IV ONE (18:45)
[2018-05-19] MEDS ORDERED: METOCLOPRAMIDE HCL 10 MG/2 ML VIAL. IV ONE (18:45)
[2018-05-19] MEDS ORDERED: KETOROLAC 15 MG/ML VIAL. IV ONE ×2 (18:45→20:45)
[2018-05-19 19:15] LABS: BILIRUBIN,URINE MODERATE (NEG); CLARITY,URINE TURBID; COLOR,URINE ORANGE; NITRITE,URINE NEGATIVE (NEG); PH,URINE 5.5; PROTEIN,URINE 100 mg/dL (NEG-TRACE)
[2018-05-19] MEDS ORDERED: IV NORMAL SALINE 1000ML BAG 1,000 ML IV ONE (19:15)
[2018-05-19] MEDS ORDERED: ALBUTEROL SULFATE 2.5 MG/3 ML NEBU. NEB ONE (19:15)
[2018-05-19 19:30] LABS: BACTERIA,URINE MANY /HPF (0-FEW); SQUAMOUS EPITHELIAL CELL,UR MANY /LPF
[2018-05-19 19:31] LABS: RBC,URINE 0 /HPF (0-2)
[2018-05-19 19:33] LABS: U PREG PATIENT NEGATIVE (NEG)
[2018-05-19 19:37] LABS: BASO % 0 % (0-3); EOS # 0.1 x10^3/uL (0.0-0.7); EOS % 1 % (0-3); HEMATOCRIT 46.4 % (36.0-47.0); HEMOGLOBIN 15.7 g/dL (12.0-15.5); LYMPH # 1.3 x10^3/uL (1.0-4.8); LYMPH % 14 % (24-48); MEAN CORPUSCULAR HEMOGLOBIN 29 pg (25-35); MEAN CORPUSCULAR HGB CONC 34 g/dL (31-37); MEAN CORPUSCULAR VOLUME 86 fL (79-100); MONO # 0.6 x10^3/uL (0.0-1.1); MONO % 7 % (0-9); NEUT # 6.8 x10^3uL (1.8-7.7); NEUT % 78 % (31-73); PLATELET COUNT 312 x10^3/uL (140-400); RED BLOOD COUNT 5.38 x10^6/uL (3.50-5.40); WHITE BLOOD COUNT 8.7 x10^3/uL (4.0-11.0)
[2018-05-19 19:45] LABS: CALCIUM 9.7 mg/dL (8.5-10.1); CREATININE 0.8 mg/dL (0.6-1.0); GFR 84.2; POTASSIUM 3.6 mmol/L (3.5-5.1)
[2018-05-19 19:51] LABS: ALBUMIN 4.3 g/dL (3.4-5.0); ALBUMIN/GLOBULIN RATIO 0.9 (1.0-1.7); TOTAL BILIRUBIN 0.9 mg/dL (0.2-1.0); TOTAL PROTEIN 8.9 g/dL (6.4-8.2)
[2018-05-19] MEDS ORDERED: cefTRIAXone IV Push 1 GM VIAL. IVP ONE (20:30)
[2018-05-19 20:42] VITALS: BP 111/67
[2018-05-19] MEDS ORDERED: ALBU2.5V8 INH (20:56)
[2018-05-19] MEDS ORDERED: BUTA1CAP31 PO (20:56)
[2018-05-19] MEDS ORDERED: PRED20TA PO (20:56)
[2018-05-19] MEDS ORDERED: CEPH-264 PO (20:56)
--- NOTE | 2018-05-19 21:35 | RAD ---
PA and lateral chest. HISTORY: Cough, headache, chills PA and lateral views were taken of the chest. Lungs are clear. Heart is normal in size without heart failure. There is no effusion. There is mild hyperexpansion. IMPRESSION: 1. No acute infiltrates. Electronically signed by: Sage Scherer MD (05/19/2018 9:33 PM) [id number]
== END 2018-05-19 21:15 | disposition home or self-care (01) ==
LOC: ER 18:10
DX: N39.0 Urinary tract infection, site not specified (principal); R51 Headache; R11.2 Nausea with vomiting, unspecified; J40 Bronchitis, not specified as acute or chronic; F41.9 Anxiety disorder, unspecified; F31.9 Bipolar disorder, unspecified; Z88.1 Allergy status to other antibiotic agents
CPT/HCPCS: 36415; 71046; 80053; 81001; 81025; 85025; 87086; 94640; 96361; 96374; 96375; 99285; J0696; J1200; J1885; J2765; J2930; J7030; J7613

== ENCOUNTER 2018-07-30 16:10 | Emergency (ER) | payer SELFPAY ==
[~2018-07-30] VITALS: Ht 172.7 cm; Wt 86.2 kg
[~2018-07-30 16:10] MED LIST changes: +ALBU2.5V8 INH; +BUTA1CAP31 PO; +CEPH-264 PO; +PRED20TA PO
[2018-07-30 16:22] VITALS: BP 139/88
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
[2018-07-30] MEDS ORDERED: KETOROLAC 30 MG/ML VIAL. IV ONE (16:30)
[2018-07-30] MEDS ORDERED: ONDANSETRON PF 4 MG/2 ML VIAL. IV ONE (16:30)
[2018-07-30 16:35] LABS: BILIRUBIN,URINE NEGATIVE (NEG); NITRITE,URINE NEGATIVE (NEG); PROTEIN,URINE NEGATIVE (NEG-TRACE); UROBILINOGEN,URINE 0.2 mg/dL (0.2 mg/dL)
[2018-07-30 16:39] LABS: CLARITY,URINE CLEAR; COLOR,URINE STRAW
[2018-07-30 16:42] LABS: BACTERIA,URINE 0 /HPF (0-FEW); RBC,URINE 0 /HPF (0-2); SQUAMOUS EPITHELIAL CELL,UR MOD /LPF; WBC,URINE OCC /HPF (0-4)
--- NOTE | 2018-07-30 17:22 | RAD ---
CT abdomen and pelvis without contrast PQRS statement: CT scans at this facility use dose reduction including either automated exposure control, iterative reconstructions, and /or weight based radiation dosing via mA and kV modification when appropriate to reduce radiation dose to as low as reasonably achievable. HISTORY: Abdominal pain. TECHNIQUE: Helical multiplanar reconstructed noncontrast CT imaging of the abdomen and pelvis was acquired. COMPARISON: CT abdomen and pelvis February 20, 2014. Abdomen findings: 3 mm pulmonary nodule right lower lobe image 1 new or outside the [id number] on the prior exam. Liver, gallbladder, pancreas, spleen, adrenal glands and kidneys are unremarkable. No urinary calculi or hydronephrosis. The appendix is negative. There is diffuse colitis with wall thickening and surrounding edema with the greatest extent of inflammation involving the ascending colon and cecum. No bowel obstruction. No abdominal fluid. Subcentimeter reactive right lower quadrant mesenteric lymph nodes. Pelvis findings: Fallopian tubal ligation clips. No bladder calculi. Bladder, uterus, ovaries, and bones are unremarkable. Mild rectosigmoid inflammatory wall thickening. No pelvic fluid. IMPRESSION: 1. Pancolitis. 2. Appendix is negative. No urinary calculi or hydronephrosis. 3. 3 mm solid pulmonary nodule of the right lower lobe was either outside the jzzrm-hl-pwyi view or is new since the prior exam from 2014. Per Fleischner guidelines in a patient with risk factors for malignancy optional CT follow-up in 12 months would be advised, otherwise no follow-up may be necessary. Electronically signed by: Daniel uGadarrama MD (07/30/2018 5:19 PM) [facility]
[2018-07-30 17:26] LABS: BASO % 0 % (0-3); EOS # 0.1 x10^3/uL (0.0-0.7); EOS % 2 % (0-3); HEMATOCRIT 40.5 % (36.0-47.0); LYMPH # 2.3 x10^3/uL (1.0-4.8); LYMPH % 26 % (24-48); MEAN CORPUSCULAR HEMOGLOBIN 29 pg (25-35); MEAN CORPUSCULAR HGB CONC 35 g/dL (31-37); MEAN CORPUSCULAR VOLUME 85 fL (79-100); MONO # 0.9 x10^3/uL (0.0-1.1); MONO % 10 % (0-9); NEUT # 5.5 x10^3uL (1.8-7.7); NEUT % 62 % (31-73); PLATELET COUNT 309 x10^3/uL (140-400); RED BLOOD COUNT 4.76 x10^6/uL (3.50-5.40); WHITE BLOOD COUNT 8.9 x10^3/uL (4.0-11.0)
[2018-07-30 17:41] LABS: CALCIUM 9.5 mg/dL (8.5-10.1); CREATININE 0.8 mg/dL (0.6-1.0); GFR 84.2; POTASSIUM 3.5 mmol/L (3.5-5.1)
[2018-07-30 17:47] LABS: ALBUMIN 3.8 g/dL (3.4-5.0); ALBUMIN/GLOBULIN RATIO 0.9 (1.0-1.7); TOTAL BILIRUBIN 0.6 mg/dL (0.2-1.0); TOTAL PROTEIN 8.1 g/dL (6.4-8.2)
[2018-07-30] MEDS ORDERED: METR500T PO (18:28)
[2018-07-30] MEDS ORDERED: DICY20TA3 PO (18:28)
[2018-07-30] MEDS ORDERED: CIPR500T94 PO (18:28)
== END 2018-07-30 18:44 | disposition home or self-care (01) ==
LOC: ER 16:10
DX: K52.89 Other specified noninfective gastroenteritis and colitis (principal); F41.9 Anxiety disorder, unspecified; F31.9 Bipolar disorder, unspecified; Z88.1 Allergy status to other antibiotic agents
CPT/HCPCS: 36415; 74176; 80053; 81001; 81025; 83690; 85025; 96374; 96375; 99285; J1885; J2405

== ENCOUNTER 2018-10-26 19:23 | Emergency (ER) | payer SELFPAY ==
[~2018-10-26] VITALS: Ht 165.1 cm; Wt 86.2 kg
[~2018-10-26 19:23] MED LIST changes: +CIPR500T94 PO; +DICY20TA3 PO; +METR500T PO
[2018-10-26 19:36] VITALS: BP 130/73
[2018-10-26 19:45] LABS: BILIRUBIN,URINE NEGATIVE (NEG); CLARITY,URINE CLOUDY; COLOR,URINE YELLOW; NITRITE,URINE NEGATIVE (NEG); PH,URINE 6.5; PROTEIN,URINE NEGATIVE (NEG-TRACE)
[2018-10-26 19:53] LABS: SQUAMOUS EPITHELIAL CELL,UR MANY /LPF
[2018-10-26 19:54] LABS: BACTERIA,URINE MANY /HPF (0-FEW)
[2018-10-26 19:55] LABS: TRICHOMONAS,URINE PRESENT
[2018-10-26] MEDS ORDERED: CEPH-264 PO (20:28)
[2018-10-26] MEDS ORDERED: ONDA4TAB12 PO (20:28)
[2018-10-26] MEDS ORDERED: METR-34 PO (20:28)
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
[2018-10-26] MEDS ORDERED: cefTRIAXone IM 250 MG VIAL IM ONE (20:30)
[2018-10-26] MEDS ORDERED: ACETAMINOPHEN/CODEINE 300/30MG TABLET. PO ONE (20:30)
[2018-10-26] MEDS ORDERED: ONDANSETRON ODT 4 MG TAB.RAPDIS. PO ONE (20:30)
[2018-10-26] MEDS ORDERED: AZITHROMYCIN 250 MG TABLET. PO ONE (20:30)
[2018-10-29 18:10] LABS: GC PROBE Positive (Negative)
== END 2018-10-26 20:53 | disposition home or self-care (01) ==
LOC: ER 19:23
DX: A64 Unspecified sexually transmitted disease (principal); N39.0 Urinary tract infection, site not specified; N76.0 Acute vaginitis; B96.89 Other specified bacterial agents as the cause of diseases classified elsewhere; A59.9 Trichomoniasis, unspecified; F31.9 Bipolar disorder, unspecified; Z98.51 Tubal ligation status; Z88.1 Allergy status to other antibiotic agents
CPT/HCPCS: 81001; 81025; 87086; 87491; 87591; 96372; 99284; J0696; Q0111; Q0144; Q0162

== ENCOUNTER 2018-12-18 20:12 | Emergency (ER) | payer OTHER ==
[~2018-12-18] VITALS: Ht 172.7 cm; Wt 77.1 kg
[~2018-12-18 20:12] MED LIST changes: +METR-34 PO; +ONDA4TAB12 PO
[2018-12-18 20:22] VITALS: BP 113/60
[2018-12-18] MEDS ORDERED: AMOX500C PO (20:41)
[2018-12-18] MEDS ORDERED: IBUP-1007 PO (20:41)
[2018-12-18] MEDS ORDERED: CYCL5TAB PO (20:42)
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
== END 2018-12-18 21:02 | disposition home or self-care (01) ==
LOC: ER 20:12
DX: M26.622 Arthralgia of left temporomandibular joint (principal); H66.92 Otitis media, unspecified, left ear; Z88.1 Allergy status to other antibiotic agents
CPT/HCPCS: 99283

== ENCOUNTER 2019-06-10 23:41 | Emergency (ER) | payer SELFPAY ==
[~2019-06-10] VITALS: Ht 172.7 cm; Wt 70.0 kg
[~2019-06-10 23:41] MED LIST changes: +AMOX500C PO; +CYCL5TAB PO; +IBUP-1007 PO
[2019-06-11] VITALS: BP 124/88
[2019-06-11] MEDS ORDERED: ORPH100T PO (00:11)
[2019-06-11] MEDS ORDERED: HYDR-3164 PO (00:11)
[2019-06-11] MEDS ORDERED: PRED20TA PO (00:11)
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
[2019-06-11] MEDS ORDERED: HYDROcodone/APAP 5/325MG 1 TAB TABLET PO ONE (00:15)
[2019-06-11] MEDS ORDERED: DEXAMETHASONE 4 MG TABLET PO ONE (00:15)
[2019-06-11] MEDS ORDERED: KETOROLAC 30 MG/ML VIAL. IM ONE (00:15)
[2019-06-11] MEDS ORDERED: ORPHENADRINE CITRATE 60 MG/2 ML VIAL. IM ONE (00:15)
== END 2019-06-11 00:30 | disposition home or self-care (01) ==
LOC: ER 23:41
DX: G89.29 Other chronic pain (principal); M54.5 Low back pain; F31.9 Bipolar disorder, unspecified; F17.200 Nicotine dependence, unspecified, uncomplicated; Z88.1 Allergy status to other antibiotic agents
CPT/HCPCS: 96372; 99284; J1885; J2360; J8540

== ENCOUNTER 2019-12-25 18:02 | Emergency (ER) | payer OTHER ==
[~2019-12-25] VITALS: Ht 162.6 cm; Wt 80.0 kg
[~2019-12-25 18:02] MED LIST changes: +ORPH100T PO
[2019-12-25 19:08] VITALS: BP 109/69
[2019-12-25] MEDS ORDERED: HYDR-3164 PO (21:37)
[2019-12-25] MEDS ORDERED: PENI500T PO (21:37)
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
== END 2019-12-25 21:49 | disposition home or self-care (01) ==
LOC: ER 18:02
DX: G89.29 Other chronic pain (principal); M54.5 Low back pain; F41.9 Anxiety disorder, unspecified; F32.9 Major depressive disorder, single episode, unspecified; F17.200 Nicotine dependence, unspecified, uncomplicated; Z98.51 Tubal ligation status; Z98.890 Other specified postprocedural states; Z88.1 Allergy status to other antibiotic agents
CPT/HCPCS: 99283